=== PATIENT | female | born 1965 | race American Indian/Alaskan Native ===

== ENCOUNTER 2018-07-11 18:18 | Emergency (ER) | payer OTHER, MEDICAID ==
[2018-07-11 18:36] VITALS: BP 116/76
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
[2018-07-11] MEDS ORDERED: ULTRAM PO ONE (22:39)
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
== END 2018-07-11 22:52 | disposition home or self-care (01) ==
LOC: ED 18:18
DX: M54.5 Low back pain (principal); M25.571 Pain in right ankle and joints of right foot; G89.29 Other chronic pain; Z87.891 Personal history of nicotine dependence; Z79.899 Other long term (current) drug therapy; Z88.4 Allergy status to anesthetic agent; Z88.6 Allergy status to analgesic agent; V59.9XXA Occupant (driver) (passenger) of pick-up truck or van injured in unspecified traffic accident, initial encounter; Y93.89 Activity, other specified; Y99.8 Other external cause status; Y92.410 Unspecified street and highway as the place of occurrence of the external cause